=== PATIENT | male | born 1990 | race Caucasian/White ===

== ENCOUNTER 2021-01-03 17:28 | Emergency (ER) | payer SELFPAY ==
[2021-01-03 17:35] VITALS: BP 134/70; PULSE 91; RESP 18; TEMP 37.3; O2SAT 99
--- NOTE | 2021-01-03 17:36 | ED_ITS ---
HPI - Skin/Abscess/Foreign Bdy General Chief complaint: Skin/Abscess/Foreign Body Stated complaint: Insect Bite Lt Elbow Source: patient and RN notes reviewed Limitations: no limitations History of Present Illness HPI narrative: The patient, previously mostly healthy, presents with skin eruption. 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 Symptoms are mild, worse with scratching, associated with scant discharge. No fever, streaking, fluctuance, abscess/induration. Related Data Allergies Allergy/AdvReac Type Severity Reaction Status Date / Time No Known Allergies Allergy Mild Verified 01/03/21 17:37 Review of Systems Review of Systems: General/Constitutional: No weight loss,fever Respiratory: Denies: Hemoptysis Skin: No Lumps, REPORTS eruption Neurologic: No Focal Weakness,Sz Hematologic: Denies: Petechiae/Purpura PMFSH Comments At time of signature, agree with nursing past medical and family history. There is no relevant family history pertinent to the presenting complaint Exam Narrative: General Appearance: Well nourished,normocephalic, Conjunctiva clear Mouth/Throat: Normal appearing, Supple Respiratory: Airway patent, No respiratory distress Musculoskeletal: Moves all extremities, Non tender Skin: Warm, Dry small, isolated macular papular skin eruption of left medial arm Neurological: A&O x3, Normal affect Course Vital Signs Vital signs: Vital Signs Temperature 99.2 F 01/03/21 17:35 Pulse Rate 91 01/03/21 17:35 Respiratory Rate 18 01/03/21 17:35 Blood Pressure 134/70 01/03/21 17:35 Pulse Oximetry 99 01/03/21 17:35 Temperature 99.2 F 01/03/21 17:35 Pulse Rate 91 01/03/21 17:35 Respiratory Rate 18 01/03/21 17:35 Blood Pressure 134/70 01/03/21 17:35 Pulse Oximetry 99 01/03/21 17:35 Discharge Plan Discharge Clinical Impression: Folliculitis Patient Disposition: Home, Self-Care Condition: Stable Instructions: Cellulitis (ED) Additional Instructions: Take antibiotic with antacid, food or probiotic; stop if diarrhea occurs Return if worsens per handout Prescriptions: New clindamycin HCl 300 mg capsule 300 mg PO TID Qty: 21 RF: 0 mupirocin 2 % ointment 1 applic TOPICAL TID Qty: 30 RF: 0 Follow-up/Referrals: PHYSICIAN,[employer] LOAD EXPEDITER [Primary Care Provider] -
== END 2021-01-03 17:42 | disposition home or self-care (01) ==
PROVIDERS: Emergency Provider Emergency Medicine
DX: L73.9 Follicular disorder, unspecified (principal)
CPT/HCPCS: 99213; G0463

== ENCOUNTER 2022-06-23 09:10 | Emergency (ER) | payer OTHER, SELFPAY ==
--- NOTE | 2022-06-23 09:11 | ED.WOUNDLAC ---
HPI - Wound/Laceration General Chief Complaint: Wound/Laceration Stated Complaint: Cut Lt Knee Time Seen by Provider: 06/23/22 09:19 Source: patient, RN notes reviewed and old records reviewed Mode of arrival: ambulatory Limitations: no limitations History of Present Illness HPI narrative: 31 Year old male presents to the [facility] with complaints of a laceration to his left knee. Patient states that he was walking through a yard, Slipped and fell hitting his knee. laceration noted with bleeding controlled. Unknown last Tdap Onset (ago): hour(s) (1) Extremity Location: Left: knee Patient tetanus UTD: No Related Data Home Medications Medication Instructions Recorded Confirmed No Home Medications 06/23/22 06/23/22 Allergies Allergy/AdvReac Type Severity Reaction Status Date / Time No Known Allergies Allergy Mild Verified 06/23/22 09:59 Review of Systems Review of Systems: All systems reviewed & are unremarkable except as noted in HPI and below Constitutional: Constitutional: Reports no additional constitutional complaints Eyes: Eyes: Reports no additional eye complaints ENT: Reports system reviewed and no additional complaints, except as documented Cardiovascular: Cardiovascular: Reports no additional cardiovascular complaints, Denies chest pain and Denies dyspnea Respiratory: Respiratory: Reports no additional respiratory complaints, Denies chest congestion, Denies cough and Denies dyspnea Gastrointestinal: Gastrointestinal: Reports no additional gastrointestinal complaints, Denies abdominal pain, Denies nausea and Denies vomiting Musculoskeletal: Musculoskeletal: Reports no additional musculoskeletal complaints Integumentary/Breasts: Skin/Breast: Reports as per HPI and Reports wounds Neurologic: Reports system reviewed and no additional complaints, except as documented Psychiatric: Psychiatric: Reports no additional psychiatric complaints Allergic/Immunologic: Allergic/Immunologic: Reports no additional allergic/immunologic complaints FOR[facility]LY [facility] Past Medical History Medical History (Updated 06/23/22 @ 18:50 by Laila Ivory APRN) Patient denies medical problems Surgical History Surgical History (Updated 06/23/22 @ 09:31 by Laila Ivory APRN) No history of previous surgery Social History Social History (Updated 06/23/22 @ 09:32 by Laila Ivory APRN) Smoking status: Current every day smoker Tobacco type: cigarettes Substance use: current Substance use type: marijuana Gender identity (if verbalized by the patient): Male Comments At the time of my signature, I reviewed and agree with the nursing past medical, surgical, social, and family history. There is no relevant family history pertinent to the patient complaint. Exam Const: General: cooperative, healthy appearing, comfortable, no acute distress, well developed, alert and well nourished Nutritional Appearance: well nourished Orientation/consciousness: patient oriented x3 Limitations: no limitations HENMT: Head: normal to inspection Ears: hearing grossly normal bilaterally and external ears normal Face/Nose/Sinus: Normal external nose present, Normal nares present, Normal nasal mucous membranes and turbinates present and normal facial exam Face and sinus: normal facial exam Mouth: Yes Normal oral and palatal mucosa present, Yes lip normal and Yes moist mucous membranes Eyes: General: appearance normal, both eyes and all related structures Alignment and Position: alignment normal Periorbital: periorbital findings normal Conjunctivae: conjunctivae normal Pupils: Equal, round and reactive pupils present EOM: EOMs intact bilaterally Neck: Neck: normal visual inspection, full ROM, no lymphadenopathy and no meningeal signs Chest: Chest palpation & inspection: normal inspection of the chest Resp: Effort & Inspection: normal respiratory effort and able to speak in complete sentences Cardio: Rate: regular rate Rhyt
[2022-06-23 09:25] VITALS: BP 107/68; PULSE 79; RESP 18; TEMP 36.7; O2SAT 99
[2022-06-23] MEDS: TETANUS,DIPHTHERIA,AC PERTUSSIS ADULT (0.5 ML) BOOSTRIX IM (09:37)
== END 2022-06-23 10:10 | disposition home or self-care (01) ==
PROVIDERS: Emergency Provider Nurse Practitioner
DX: S81.012A Laceration without foreign body, left knee, initial encounter (principal); W01.0XXA Fall on same level from slipping, tripping and stumbling without subsequent striking against object, initial encounter; F17.210 Nicotine dependence, cigarettes, uncomplicated; Z23 Encounter for immunization
CPT/HCPCS: 12002; 90471; 90715; 99212; G0463

== ENCOUNTER 2024-12-08 16:12 | Emergency (ER) | payer OTHER, SELFPAY ==
--- NOTE | ~2024-12-08 | XR_ITS ---
EXAMINATION: XR forearm RT 2V, 12/08/2024 16:22 CDT HISTORY: pitbull dog attack-bite laceration right forearm COMPARISON: No comparisons available. Findings: No acute fracture or malalignment. No significant degenerative changes. Posttraumatic soft tissue changes, no radiopaque foreign body identified Impression: No acute fracture or malalignment. Reviewed, dictated and finalized at location A. Impression: No acute fracture or malalignment.
--- NOTE | 2024-12-08 16:14 | ED.ANIMALBIT ---
HPI - Animal Bite General Chief Complaint: Wound/Laceration Stated Complaint: dog bite right arm Time Seen by Provider: 12/08/24 16:14 Source: patient Mode of arrival: ambulatory Limitations: no limitations History of Present Illness HPI narrative: Fernando is a 34 year old male patient presenting to the clinic today with c/o pit bull dog bite to his right arm that occurred approximately 30 minutes to an hour hour prior to arrival. He reports the dog was his friend's dog and it is up today on its immunizations. States that he was giving another dog attention when the pit bull dog attack and bit his arm. Has a total of 5 lacerations-3 on the dorsal side of the forearm and to to the volar aspect of the forearm. Bleeding is controlled. Has full range of motion of his forearm, wrist, and hand. No numbness or tingling in the hand or wrist. Tetanus is up today within the last year and a half. Related Data Allergies Allergy/AdvReac Type Severity Reaction Status Date / Time No Known Allergies Allergy Mild Verified 12/08/24 16:13 Review of Systems Review of Systems: Pertinent positives per HPI. Patient denies any fever, chills, rash, headache, visual changes, dizziness, cough, runny nose, sore throat, shortness of breath, chest pain, palpitations, nausea, vomiting, diarrhea, constipation, abdominal pain, or any urinary issues. PMFSH Past Medical History Medical History Patient denies medical problems Surgical History Surgical History No history of previous surgery Social History Social History Smoking status: Current every day smoker Tobacco type: cigarettes Substance use: current Substance use type: marijuana Gender identity (if verbalized by the patient): Male Comments At the time of my signature, I reviewed and agree with the nursing past medical, surgical, social, and family history. There is no relevant family history pertinent to the patient complaint. Exam Narrative: General: Well-developed, well nourished, in no apparent distress Head: Normocephalic, atraumatic. Cardio: Regular rate and rhythm, s1 and s2 normal, no murmur appreciated. Resp: Clear to auscultation bilaterally, no rhonchi, rales, wheezing or rubs. Integumentary: [place], warm, and dry, 5 lacerations in total, 3 lacerations to the dorsal forearm-two of the lacerations are measuring 2.5 cm in the 3rd laceration measures 2 cm. Two lacerations to the volar aspect of the forearm measuring 4 cm and 1.5 cm. 2 very small puncture wounds to the volar aspect of the forearm, bleeding controlled. Course Course Emergency Course: Portions of this record may have been created with voice recognition software. Level of Care: Express Care Visit Vital Signs Vital signs: Vital signs reviewed Procedures Laceration Laceration 1: Date: 12/08/24 Site: upper extremity Side (If applicable): right Size (cm): 12.5 Description: linear and contaminated Depth: simple, single layer Local Anesthetic: lidocaine 1% and with epi Amount of anesthesia used (mL): 1.5 Pre-repair: wound explored and irrigated extensively ====== Skin Level ====== Skin layer closed with: nylon (5-0) Size (cm): 5-0 Number of sutures: 10 Technique: simple, interrupted ====== Subcutaneous Layer ====== Subcutaneous layer closed with: vicryl Size: 4-0 Number of sutures: 3 Technique: simple, interrupted ====== Muscle Layer ====== ====== Tendon Layer ====== Dressing: Verbal consent obtained for laceration repair. Risk and benefits explained and patient voiced understanding. Area was cleansed with sterile normal saline, antiseptic wound wash, and Betadine. A 27 gauge needle was then used to instill a total of 8 ml of 1% lidocaine with epi into all 5 laceration wound edges. Area was prepped and draped using sterile technique. A 4-0 suture on a p needle was used to placed total of 3 Vicryl suture two the two wounds measuring 2.5cm and the wound measuring 4cm. A total of ten 5-0 Ethilon interrupted sutures were placed in the skin bringing the wound edges loosely together- well approximated. Patient tolerated procedure well. Sterile dressing applied. MDM - Animal Bite MDM Narrative Medical decision making narrative: At the time of visit patient is resting comfortably on the exam table. Patient appears to be nontoxic. C/o pit bull dog bite to his right arm that occurred approximately 30 minutes to an hour hour prior to arrival. He reports the dog was his friend's dog and it is up today on its immunizations. States that he was giving another dog attention when the pit bull dog attack and bit his arm. Has a total of 5 lacerations-3 on the dorsal side of the forearm and to to the volar aspect of the forearm. Bleeding is controlled. Has full range of motion of his forearm, wrist, and hand. No numbness or tingling in the hand or wrist. Tetanus is up today within the last year and a half. On exam patient has 5 total lacerations and to small puncture wounds. Patient has 2 small puncture wounds to the volar aspect the forearm with 2 lacerations largest one measuring 4 cm and the smaller one measuring 1.5 cm. On the dorsal aspect of the arm patient has 3 lacerations-two of the lacerations measure 2.5 cm and third laceration measuring 1.5 cm in length. Procedure: Verbal consent was obtained for laceration repair. Laceration repair was performed-sterile saline was used to irrigate wounds out extensively, antiseptic wound wash was also used to cleanse wound as well as Betadine. Three 4-0 Vicryl sutures were used to close up the subcutaneous tissue-of the 3 largest laceration-both 2.5 cm lacerations on the dorsal forearm and the 4 cm laceration you will do the volar aspect of the forearm. A total of 10 Ethilon suture were placed loosely- bring wound edges together-well approximated. Sterile dressing and Coban was applied. Plan: Patient has a total of 5 lacerations from a pit bull/dog bite. Has 2 puncture wounds to the volar aspect of the forearm. Suture repair was performed bringing the wound edges loosely together well approximate to allow for healing. Wound was irrigated and cleansed extensively prior to laceration repair. Will place the patient on 7 day course of Augmentin. His tetanus is up-to-date. Wound check in 2-3 days. Sutures out in 10-14 days. Supportive measures were discussed with the patient and they voiced understanding discharge instructions and agrees to treatment plan. Return precautions reviewed Differential Diagnosis Differential diagnosis: Likely bite by animal, dog bite and other (Puncture wound, laceration) Discharge Plan Discharge Clinical Impression: Dog bite of right forearm without complication, Laceration of forearm, Puncture wound Patient Disposition: Home Condition: Stable Instructions: Antibiotic Form, Animal Bite (ED), Laceration (ED) Additional Instructions: Leave bandage on for 24 hours then may remove and apply band aide covering as needed. 10 sutures were placed bringing wound edges well approximate Take Augmentin as prescribed Keep wound clean and dry Wash daily with soap and water Skin sutures out in 10-14 days. Wound check in 2-3 days. Watch for signs and symptoms of infection- redness, streaking, swelling, purulent discharge, or increase in pain. Follow up with your PCP for suture removal or return to the Express care. Patient Language: Armenian Prescriptions: New amoxicillin-pot clavulanate 875-125 mg tablet 1 tablet PO Q12H 7 Days Qty: 14 0RF Follow-up/Referrals: UNKNOWN,DOCTOR [Non-Staff] Time of Disposition: 17:26 Quality NIHSS Nursing Documentation ED NIHSS nursing documentation: reviewed/agree
[2024-12-08 16:24] VITALS: BP 135/89; PULSE 79; RESP 18; TEMP 37.1; O2SAT 98
[2024-12-08] MEDS: LIDO 1%/EPINEPHRINE 1:100,000 20 ML VIAL INFILTRATE (17:28)
== END 2024-12-08 17:43 | disposition home or self-care (01) ==
PROVIDERS: Emergency Provider Nurse Practitioner Family
DX: S51.811A Laceration without foreign body of right forearm, initial encounter (principal); S51.831A Puncture wound without foreign body of right forearm, initial encounter; W54.0XXA Bitten by dog, initial encounter
CPT/HCPCS: 12034; 73090; 99213; G0463; J2004